=== PATIENT | female | born 1970 | race Caucasian/White ===

== ENCOUNTER 2023-11-11 15:31 | Emergency (ER) | payer OTHER, SELFPAY ==
[2023-11-11 15:34] VITALS: BP 161/96; BMI 22.9
[2023-11-11 15:55] LABS: % Basophils 1.1 % (0-2); % Eosinophils 1.7 % (0-6); % Immature Granulocytes 0.6 % (0-0.5); % Lymphocytes 20.2 % (20.5-51.1); % Monocytes 13.3 % (1.7-9.3); % Neutrophils 63.1 % (42.2-75.2); Absolute Basophils 0.1 10^3/uL (0-0.2); Absolute Eosinophils 0.1 10^3/uL (0-0.7); Absolute Lymphocytes 1.1 10^3/uL (1.2-3.4); Absolute Monocytes 0.7 10^3/uL (0.1-0.6); Absolute Neutrophils 3.4 10^3/uL (1.4-6.5); Hematocrit 42.1 % (37.0-47.0); Hemoglobin 14.6 g/dL (12.0-16.0); Mean Corp Hgb Conc. 34.7 g/dL (33.0-37.0); Mean Corpuscular Hgb 28.8 pg (27.0-31.0); Mean Platelet Volume 10.3 fL (7.4-10.4); Nucleated Red Blood Cells % 0 %; Platelet Count 285 10^3/uL (130-400); Red Blood Cell Count 5.07 10^6/uL (4.20-5.40); Red Cell Dist. Width 12.2 % (11.5-14.5); White Blood Cell Count 5.4 10^3/uL (4.8-10.8)
[2023-11-11 15:56] LABS: Urine Albumin Trace (Neg - Trace); Urine Bilirubin 1+ (Negative); Urine Character Clear (Clear); Urine Color Yellow; Urine Glucose Negative (Negative); Urine Ketone 1+ (Negative); Urine Leukocyte Trace (Negative); Urine Nitrite Negative (Negative); Urine Occult Blood Negative (Negative); Urine Urobilinogen Negative (Neg - 1+)
[2023-11-11 16:20] LABS: ALT (SGPT) 23 U/L (0-35); AST (SGOT) 22 U/L (14-36); Albumin 4.3 g/dl (3.5-5.0); Alkaline Phosphatase 76 U/L (38-126); Blood Urea Nitrogen 18 mg/dl (7-17); Calcium 9.5 mg/dl (8.4-10.2); Carbon Dioxide 24 mmol/L (22-30); Chloride 99 mmol/L (98-107); Estimated Creatinine Clearance 52 ml/min; Glucose 125 mg/dl (70-99); Lipase 160 U/L (23-300); Potassium 3.5 mmol/L (3.5-5.1); Sodium 133 mmol/L (135-145); Total Bilirubin 0.5 mg/dl (0.2-1.3); Total Protein 7.3 g/dl (6.3-8.2); eGFR > 60.00
[2023-11-11 16:31] LABS: Urine Bacteria Many (Negative); Urine Mucus Moderate; Urine Red Blood Cell 0-2 /HPF (0-2); Urine White Cell 0-2 /HPF (0-5)
[2023-11-11] MEDS: NSS 1000 IV (17:49)
[2023-11-11 17:51] VITALS: BP 99/85
[2023-11-11 18:00] VITALS: BP 134/83
--- NOTE | 2023-11-11 18:32 | ED.GENMED ---
History of Present Illness
General
Chief Complaint: Abdominal Symptoms
Time Seen by Provider: 11/11/23 17:00
Travel History
Have you had any contact with someone who has COVID-19?: No
Do you have any symptoms of coronavirus? Fever > 100 degrees, chills, cough, shortness of breath, sore throat, loss of taste or smell, muscle aches, or headache?: No
History of Present Illness
History of Present Illness:
53-year-old female with no significant past medical history presents to the emergency department for evaluation of persistent vomiting and diarrhea for the past 5 days. Vomiting was more profuse initially and has since improved but she is still
having watery diarrhea. Has noticed occasional episodes of scant blood in the stool for the past 48 hours. Denies any significant abdominal pain at the current time. Notes that she did eat muscles prior to the onset of symptoms. Denies any
jaundice or dark urine. No fevers or chills
Past History
Past History
ED Past Medical History: Psychiatric (Anxiety)
ED Past Surgical History: None
Social History
Alcohol: Occasional
Drug: None
Personal:
Living: with family
Employment: Other
Family History
Family History: Other (Diabetes and stroke)
Review of Systems
Review of Systems
Allergies reviewed?: Yes
All Other Systems: ROS reviewed and negative except as documented in HPI and ROS
Phy Exam
Physical Exam
Physical Exam:
GEN: Well appearing, NAD, WDWN
HEENT: Oral mucosa moist, no scleral icterus
Cardiac: Regular rate and rhythm, no murmurs
Lung: No respiratory distress, no tachypnea
Abdomen: Soft, nontender, no rigidity, no peritoneal signs
MSK: No gross deformity or injuries
Skin: Good color, no pallor or jaundice, no rashes
Neuro: AO x3, moves all extremities freely
Psych: Calm, cooperative
Course
Orders/Labs/Results
Orders:
Orders
11/11/23 15:44
Complete Blood Count/With Diff Urgent
Comprehensive Metabolic Panel Urgent
Lipase Urgent
Urinalysis Reflex To Culture Urgent
Date Specimen was Collected: 11/11/23
Time Specimen was Collected: 15:37
Urine Microscopic Reflex Cult Urgent
Urine Culture Urgent
REDD Source: U
Specimen Description:
Date Specimen was Collected: 11/11/23
Time Specimen was Collected: 15:37
11/11/23 17:32
0.9% Sodium Chloride 1000 ml [Nss] 1,000 ml IV BOLUS
11/11/23 19:12
Stool Culture Urgent
REDD Source: Feces/Stool
Specimen Description:
Date Specimen was Collected: 11/11/23
Time Specimen was Collected: 19:10
Abnormal Lab Results
11/11/23
15:44
Absolute Lymphs (auto) 1.1 L 10^3/uL
(1.2-3.4)
Absolute Monos (auto) 0.7 H 10^3/uL
(0.1-0.6)
Immature Gran % 0.6 H %
(0-0.5)
Lymphocytes % 20.2 L %
(20.5-51.1)
Monocytes % 13.3 H %
(1.7-9.3)
Sodium 133 L mmol/L
(135-145)
BUN 18 H mg/dl
(7-17)
Glucose 125 H mg/dl
(70-99)
Urine Ketones 1+ A
(Negative)
Urine Bilirubin 1+ A
(Negative)
Leukocyte Esterase Rfl Trace A
(Negative)
Urine Bacteria (Reflex) Many A
(Negative)
11/11/23 15:44
11/11/23 15:44
Vital Signs
Initial and Last Documented VS:
Initial Vital Signs
Temp Pulse Resp BP Pulse Ox
99.1 F 98 16 161/96 99
11/11/23 15:34 11/11/23 15:34 11/11/23 15:34 11/11/23 15:34 11/11/23 15:34
Last Documented Vital Signs
Temp Pulse Resp BP Pulse Ox
99.1 F 98 16 134/83 95
11/11/23 15:34 11/11/23 15:34 11/11/23 15:34 11/11/23 18:00 11/11/23 19:00
MDM/Problems Addressed
MDM/Problems Addressed:
Patient's labs are reassuring. She was resuscitated with 1 L normal saline IV due to likelihood for fluid loss in the setting of persistent diarrhea. She was able to provide a sample culture, will treat empirically with azithromycin pending
further culture results. There is no tenderness on exam thus do not feel that there is any indication for CT of the abdomen and pelvis
*Critical Care Note
Total Time (30-74mins, 75-104mins- exclusive of procedures): Not Applicable
ED Attending Note
-
Portions of this chart may have been created with voice recognition software.� Occasional wrong word or��sound alike� substitutions may have occurred due to the inherent limitations of voice recognition software.
Discharge Plan
Departure
Patient Disposition: Home (Routine Discharge)
Date of Disposition: 11/11/23
Time of Disposition: 19:18
Patient with high blood pressure during this ER visit?: No
Discharge Problem:
Diarrhea
Instructions: Diarrhea, Adult ED
Prescriptions:
New
azithromycin 500 mg tablet
500 mg PO DAILY 3 Days Qty: 3 0RF
Rx Instructions:
500 mg orally;
No Action
ondansetron HCl 4 MG tablet
4 mg PO TIDPRN PRN (Reason: nausea and vomiting) Qty: 15 0RF
Referrals:
Joy Wynne MD [Family Provider] -
Interventions
Interventions:
*Risk Screen - Suicide Last Done: 11/11/23 15:34
*General Assessment Last Done: 11/11/23 17:57
*Neglect/Abuse Screening Last Done: 11/11/23 15:34
ED- Fall Risk Assessment Last Done: 11/11/23 15:34
*ED COVID-19 Vaccine History Last Done: 11/11/23 17:57
*Nursing Disposition Last Done: 11/11/23 19:27
TZ-Tpanen-Xjfafvyqoe Assessment Last Done: 11/11/23 17:58
Discharge Date and Time
Discharge Date/Time: 11/11/23 19:28
Print Language: BOTSWANAN
== END 2023-11-11 19:28 | disposition home or self-care (01) ==
LOC: EMR 15:31
PROVIDERS: Emergency Medicine; EMERGENCY PHYSICIAN Emergency Medicine; FAMILY PHYSICIAN Emergency Medicine
DX: R19.7 Diarrhea, unspecified (principal)
CPT/HCPCS: 99284; 96360; 80053; 81003; 81015; 83690; 85025; 87045; 87046; 87086; 87427

== ENCOUNTER 2023-11-14 22:03 | Emergency (ER) | payer OTHER, SELFPAY ==
[2023-11-14 22:08] VITALS: BP 123/81
[2023-11-15 00:06] VITALS: BP 126/83; BMI 23.9
--- NOTE | 2023-11-15 00:36 | ED.GENMED ---
History of Present Illness
General
Chief Complaint: Allergic Reaction
Source: patient
Exam Limitations: none
Time Seen by Provider: 11/15/23 00:15
Nursing documentation reviewed up to this point in time: agreed with
Travel History
Have you had any contact with someone who has COVID-19?: No
Do you have any symptoms of coronavirus? Fever > 100 degrees, chills, cough, shortness of breath, sore throat, loss of taste or smell, muscle aches, or headache?: No
History of Present Illness
History of Present Illness:
53-year-old female presents to the emergency department complaining of a rash on her back after starting Bactrim today. She had diarrhea for a week, and was prescribed azithromycin initially, and when her stool studies came back positive for
Salmonella, she was prescribed Bactrim. Her first dose was today. She does feel somewhat better, having less diarrhea. She denies any fevers.
Past History
Past History
ED Past Medical History: Psychiatric (Anxiety)
ED Past Surgical History:
Social History
Tobacco: Non-smoker
Alcohol: Occasional
Drug: None
Personal:
Living: with family
Family History
Family History: Other (Diabetes and stroke)
Review of Systems
Review of Systems
Allergies reviewed?: Yes
All Other Systems: Not applicable
Constitutional: Reports no symptoms; Denies fever
EENT: Reports no symptoms
Respiratory: Reports no symptoms
Cardiac: Reports no symptoms
ABD/GI: Reports diarrhea; Denies abdominal pain or bloody stools
: Reports no symptoms
Musculoskeletal: Reports no symptoms
Skin: Reports no symptoms
Neurological: Reports no symptoms; Denies dizzy or weakness
Endocrine: Reports no symptoms
Hematologic/Lymphatic: Reports no symptoms
Psychiatric: Reports no symptoms
Phy Exam
Physical Exam
Physical Exam:
Physical Exam
General: no apparent distress, not acutely ill
Neck: supple. no meningeal signs. normal posterior pharynx
Heart: s1/s2 regular rate and rhythm, no murmur. equal radial
pulses.
HEENT: Pupils equal round reactive to light, EOMI
Lungs: no acute respiratory distress. clear bilaterally
Abdomen: normal bowel sounds. not tender. no CVAT
Neuro: alert and oriented. no focal neurological deficits
Skin: no rash
Psychiatric: well kept. interactive and cooperative
Extremities: no edema. no calf tenderness. negative homans. good distal pulses
Course
Vital Signs
Initial and Last Documented VS:
Initial Vital Signs
Temp Pulse Resp BP Pulse Ox
98.3 F 93 18 123/81 97
11/14/23 22:08 11/14/23 22:08 11/14/23 22:08 11/14/23 22:08 11/14/23 22:08
Last Documented Vital Signs
Temp Pulse Resp BP Pulse Ox
98.3 F 77 18 126/83 99
11/14/23 22:08 11/15/23 00:06 11/15/23 00:06 11/15/23 00:06 11/15/23 00:06
MDM/Problems Addressed
Differential Diagnosis Includes:
Anaphylaxis, allergic reaction, drug rash
MDM/Problems Addressed:
61-year-old female with Salmonella diarrhea, allergic reaction versus drug rash to Bactrim will have patient continue taking her azithromycin if diarrhea persists. At this point patient does feel better, and will hold off on antibiotic treatment.
Will give prescription for azithromycin.
*Pulse Oximetry
Patient hypoxic: no
*EKG
Interpreted by ED Provider?: NA
*Interior Wirer Interpretation
Rate: Interior Wirer- N/A
*Critical Care Note
Total Time (30-74mins, 75-104mins- exclusive of procedures): Not Applicable
Data Reviewed
Review of Other/Old Records Reveals: Labs
Source: records (Recent stool testing positive for Salmonella)
Patient Management
Social determinants of health affecting care: Living situation and Strong social support
Escalation/DeEscalation of care consider admission/obs:
Admit not indicated
ED Attending Note
-
Portions of this chart may have been created with voice recognition software.� Occasional wrong word or��sound alike� substitutions may have occurred due to the inherent limitations of voice recognition software.
Discharge Plan
Departure
Patient Disposition: Home (Routine Discharge)
Date of Disposition: 11/15/23
Time of Disposition: 00:43
Patient with high blood pressure during this ER visit?: Yes
Discharge Problem:
Allergic reaction caused by a drug, Salmonella dysentery
Instructions: Salmonella infection, Allergic Reaction ED, BLOOD PRESSURE
Prescriptions:
New
azithromycin 500 mg tablet
500 mg PO DAILY 7 Days Qty: 8 0RF
Rx Instructions:
take 2 doses on first day, then 1 tab for 6 days
Referrals:
Joy Wynne MD [Family Provider] -
Interventions
Interventions:
*Risk Screen - Suicide Last Done: 11/14/23 22:08
*General Assessment Last Done: 11/14/23 22:08
*Neglect/Abuse Screening Last Done: 11/14/23 22:08
ED- Cardiac Assessment Last Done: 11/15/23 00:06
ED- Pulmonary Assessment Last Done: 11/15/23 00:06
ED-Skin Assessment Last Done: 11/15/23 00:06
Discharge Date and Time
Print Language: TURKISH
[2023-11-15 01:10] VITALS: BP 119/75
== END 2023-11-15 01:11 | disposition home or self-care (01) ==
LOC: EMR 22:03
PROVIDERS: EMERGENCY PHYSICIAN Emergency Medicine; FAMILY PHYSICIAN Emergency Medicine
DX: T50.905A Adverse effect of unspecified drugs, medicaments and biological substances, initial encounter (principal); A02.0 Salmonella enteritis; R03.0 Elevated blood-pressure reading, without diagnosis of hypertension
CPT/HCPCS: 99282

== ENCOUNTER → 2024-01-12 11:04 | Outpatient (REF) | payer OTHER, SELFPAY | LOC: HWRAD 11:04 | PROVIDERS: ATTENDING PHYSICIAN Emergency Medicine | DX: R10.30 Lower abdominal pain, unspecified (principal); R10.2 Pelvic and perineal pain | CPT/HCPCS: 76830; 76856 ==

== ENCOUNTER → 2024-09-07 13:01 | Outpatient (REF) | payer OTHER, SELFPAY | LOC: HWWDC 13:01 | PROVIDERS: ATTENDING PHYSICIAN Emergency Medicine; REFERRING PHYSICIAN Obstetrics & Gynecology | DX: Z12.31 Encounter for screening mammogram for malignant neoplasm of breast (principal) | CPT/HCPCS: 77063; 77067 ==